=== PATIENT | male | born 1985 | race Caucasian/White ===

== ENCOUNTER 2018-07-19 09:58 | Emergency (ER) | payer SELFPAY ==
[~2018-07-19] VITALS: Ht 182.9 cm; Wt 90.7 kg
[2018-07-19 10:18] VITALS: BP 134/77
== END 2018-07-19 10:28 | disposition home or self-care (01) ==
LOC: ER 10:01
DX: L02.211 Cutaneous abscess of abdominal wall (principal)
CPT/HCPCS: 99283; A4606; Z7610

== ENCOUNTER 2018-10-25 09:20 | Emergency (ER) | payer SELFPAY ==
[~2018-10-25] VITALS: Ht 182.9 cm; Wt 108.9 kg
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
--- NOTE | 2018-10-25 10:13 | NUR ---
PATIENT REMAINS STABLE, NO DISTRESS NOTED. FAMILY MEMBER AT BEDSIDE
--- NOTE | 2018-10-25 10:50 | NUR ---
Patient discharged to home in stable condition. Written and verbal after care instructions given. Patient'S FEMALE FRIEND- verbalizes understanding of instruction.
[2018-10-25 10:57] VITALS: BP 142/62
== END 2018-10-25 10:58 | disposition home or self-care (01) ==
LOC: ER 09:21
DX: T40.1X1A Poisoning by heroin, accidental (unintentional), initial encounter (principal); Y92.89 Other specified places as the place of occurrence of the external cause
CPT/HCPCS: 99283; A4606; Z7610